=== PATIENT | female | born 1985 | race Caucasian/White ===

== ENCOUNTER 2018-11-21 01:05 | Emergency (ER) | payer OTHER ==
[~2018-11-21] VITALS: Ht 157.5 cm; Wt 85.7 kg
[2018-11-21 01:09] VITALS: Ht 157.5 cm; Wt 85.7 kg
[2018-11-21 02:33] LABS: CALCIUM 8.2 mg/dL (8.5-10.1); CARBON DIOXIDE 26.4 mmol/L (21-32); CHLORIDE SERUM 108 mmol/L (98-107); CREATININE SERUM 0.7 mg/dL (0.6-1.0); GFR1 > 60 mL/min; GLUCOSE SERUM 71 mg/dL (74-106); POTASSIUM SERUM 3.4 mmol/L (3.5-5.1); SODIUM SERUM 143 mmol/L (136-145)
[2018-11-21 02:38] LABS: ALBUMIN 3.4 g/dL (3.4-5.0); ALKALINE PHOSPHATASE 107 U/L (46-116); ALT/SGPT 50 U/L (14-59); AST/SGOT 81 U/L (15-37); BILIRUBIN TOTAL 0.38 mg/dL (0.20-1.00); LIPASE 95 IU/L (73-393); TOTAL PROTEIN, SERUM 7.3 g/dL (6.4-8.2)
[2018-11-21 02:41] LABS: BASOPHIL % 0.2 % (0-2); PLATELET COUNT 209 x10^3mcL (130-400); RED CELL DISTRIBUTION WIDTH 12.5 % (11.5-14.5)
[2018-11-21 04:55] VITALS: BP 104/65
== END 2018-11-21 04:55 | disposition home or self-care (01) ==
LOC: ED 01:05
PROVIDERS: Emergency Medicine
DX: R10.816 Epigastric abdominal tenderness (principal); R11.2 Nausea with vomiting, unspecified; R21 Rash and other nonspecific skin eruption; Z90.49 Acquired absence of other specified parts of digestive tract
CPT/HCPCS: J2270; J2405; J7030; Q0162

== ENCOUNTER 2019-10-29 10:22 | Emergency (ER) | payer SELFPAY ==
[~2019-10-29] VITALS: Ht 157.5 cm; Wt 90.3 kg
[2019-10-29 10:43] VITALS: Ht 157.5 cm; Wt 90.3 kg
[2019-10-29 12:03] LABS: BASOPHIL % 0.4 % (0-2); PLATELET COUNT 209 x10^3mcL (130-400)
[2019-10-29 12:07] LABS: CALCIUM 8.7 mg/dL (8.5-10.1); CHLORIDE SERUM 104 mmol/L (98-107); CREATININE SERUM 0.7 mg/dL (0.6-1.0); GFR1 > 60 mL/min; GLUCOSE SERUM 85 mg/dL (74-106); POTASSIUM SERUM 3.2 mmol/L (3.5-5.1); RED CELL DISTRIBUTION WIDTH 15.1 % (11.5-14.5); SODIUM SERUM 140 mmol/L (136-145)
[2019-10-29 12:13] LABS: ALBUMIN 3.7 g/dL (3.4-5.0); ALKALINE PHOSPHATASE 95 U/L (46-116); ALT/SGPT 44 U/L (14-59); AST/SGOT 21 U/L (15-37); BILIRUBIN TOTAL 0.5 mg/dL (0.20-1.00); LIPASE 48 IU/L (73-393); TOTAL PROTEIN, SERUM 7.7 g/dL (6.4-8.2)
[2019-10-29 15:06] VITALS: BP 148/97
== END 2019-10-29 15:06 | disposition home or self-care (01) ==
LOC: ED 10:22
PROVIDERS: Emergency Medicine
DX: K52.9 Noninfective gastroenteritis and colitis, unspecified (principal); Z20.828 Contact with and (suspected) exposure to other viral communicable diseases; Z90.49 Acquired absence of other specified parts of digestive tract
CPT/HCPCS: J2270; J2405; J7030; U0003-CS

== ENCOUNTER 2019-11-05 11:05 | Emergency (ER) | payer MEDICAID ==
[~2019-11-05] VITALS: Ht 157.5 cm; Wt 92.5 kg
[2019-11-05 11:28] VITALS: Ht 157.5 cm; Wt 92.5 kg
[2019-11-05 12:18] VITALS: BP 124/70
== END 2019-11-05 12:18 | disposition home or self-care (01) ==
LOC: ED 11:05
DX: K52.9 Noninfective gastroenteritis and colitis, unspecified (principal); Z90.49 Acquired absence of other specified parts of digestive tract

== ENCOUNTER 2020-05-26 10:58 | Emergency (ER) | payer SELFPAY ==
[~2020-05-26] VITALS: Ht 157.5 cm; Wt 102.5 kg
[2020-05-26 11:03] VITALS: Ht 157.5 cm; Wt 102.5 kg
[2020-05-26 12:15] LABS: microscopic required? YES
[2020-05-26 12:17] LABS: urine erythrocyte 1+ (NEGATIVE)
[2020-05-26] MEDS ORDERED: BACTRIM DS1 TAB PO (14:08)
[2020-05-26] MEDS ORDERED: ACYCLOVIR400 MG PO (14:08)
[2020-05-26] MEDS ORDERED: LIDOCAINE HCL100 ML MM (14:08)
[2020-05-26 14:50] VITALS: BP 116/81
== END 2020-05-26 14:50 | disposition home or self-care (01) ==
LOC: ED 10:58
PROVIDERS: Emergency Medicine
DX: N39.0 Urinary tract infection, site not specified (principal); A60.00 Herpesviral infection of urogenital system, unspecified; Z90.49 Acquired absence of other specified parts of digestive tract
CPT/HCPCS: 87491; 87591